=== PATIENT | female | born 1995 | race African-American/Black ===

== ENCOUNTER 2017-03-28 19:28 | Emergency (ER) | payer MEDICAID ==
[~2017-03-28] VITALS: Ht 175.3 cm; Wt 82.1 kg
[2017-03-28 19:39] VITALS: BP 125/69
[2017-03-28 20:17] LABS: Basophils # (auto) 0 uL; Basophils % (auto) 0.3 % (0.0-2.0); CONDITION Y; DEFINITIVE SEE PRINTOUT; Eosinophils # (auto) 0.1 uL; Eosinophils % (auto) 1.6 % (0.0-7.0); Hematocrit 38.1 % (36.0-46.0); Hemoglobin 12.6 g/dL (12.2-16.2); Lymphocytes # (auto) 1.5 uL; Lymphocytes % (auto) 25.1 % (10.0-50.0); Mean Corpuscular Hemoglobin 27.1 pg (28.0-32.0); Mean Corpuscular Volume 82.1 fL (80.0-100.0); Mean Platelet Volume 8.6 fL (7.4-10.4); Monocytes # (auto) 0.7 uL; Monocytes % (auto) 12.3 % (0.0-12.0); Neutrophils # (auto) 3.6 uL; Neutrophils % (auto) 60.7 % (37.0-80.0); Platelet Count (auto) 304 10^3/uL (140-450); White Blood Cell 5.9 10^3/uL (4.4-10.8)
[2017-03-28 20:24] LABS: Red Cell Distribution Width 21.3 % (11.6-16.0)
[2017-03-28 20:32] LABS: Urine Bilirubin Negative (Negative); Urine Blood Negative /uL (Negative); Urine Color Yellow (Yellow); Urine Glucose Normal (Normal); Urine Ketone Negative (Negative); Urine Nitrite Negative (Negative); Urine RBC 2 /hpf (0 - 4); Urine Squamous Epithelial Cell FEW /hpf (<5); Urine pH 7.5 (5.0-8.0)
[2017-03-28 20:34] LABS: INR 0.91 (0.9-1.15); Prothrombin Time 9.9 sec (9.37-12.3)
[2017-03-28 20:35] LABS: Albumin 3.4 g/dL (3.4-5.0); BUN/Creatinine Ratio 12.5; Bilirubin, Total 0.3 mg/dL (0.2-1.0); Calcium 9.1 mg/dL (8.5-10.1); Potassium 3.9 mmol/L (3.5-5.1); Total Protein 7.5 g/dL (6.4-8.2)
[2017-03-28 20:50] LABS: Anisocytosis Slight; Platelet Estimate Adequate
== END 2017-03-28 23:30 | disposition left against medical advice (07) ==
LOC: ER 19:31
DX: O26.852 Spotting complicating pregnancy, second trimester (principal); Z53.21 Procedure and treatment not carried out due to patient leaving prior to being seen by health care provider
CPT/HCPCS: 36415; 80053; 81001; 84702; 85025; 85610; 85730

== ENCOUNTER 2017-06-30 14:40 | Emergency (ER) | payer MEDICAID | END 2017-06-30 15:00 | disposition left against medical advice (07) | LOC: ER 14:51 | DX: O26.859 Spotting complicating pregnancy, unspecified trimester (principal); Z53.21 Procedure and treatment not carried out due to patient leaving prior to being seen by health care provider ==

== ENCOUNTER 2017-08-19 08:00 | Inpatient (IN) | payer MEDICAID ==
[~2017-08-19] VITALS: Ht 157.5 cm; Wt 84.8 kg
[2017-08-19] MEDS ORDERED: PREN-96 PO (08:47)
[2017-08-19] MEDS ORDERED: TERBUTALINE SULFATE 1 MG/ML 1ML VIAL SC ONE ×2 (08:50→08:57)
[2017-08-19] MEDS ORDERED: BETAMETHASONE ACET (6MG/ML) 5ML VIAL IM SCH (09:00)
[2017-08-19] MEDS ORDERED: MAGNESIUM SULFATE 100 ML IV ONE ×2 (09:07→09:45)
[2017-08-19] MEDS ORDERED: BETAMETHASONE ACET (6MG/ML) 5ML VIAL ONE (09:08)
[2017-08-19] MEDS ORDERED: MAGNESIUM SULFATE 40MG/ML 1,000 ML IV SCH (09:08)
[2017-08-19] MEDS ORDERED: LACTATED RINGER'S 1,000 ML IV SCH (09:08)
[2017-08-19] MEDS ORDERED: METHYLERGONOVINE MALEATE 0.2 MG/ML AMP IM PRN (09:15)
[2017-08-19] MEDS ORDERED: NALBUPHINE HCL 10 MG/1ml INJECTION IV PRN (09:15)
[2017-08-19] MEDS ORDERED: DERMOPLAST 60ML BOTTLE TOP PRN (09:15)
[2017-08-19] MEDS ORDERED: LIDOCAINE 2%HCL (LOCAL ANESTH.) INJ 20ML MDV IJ PRN (09:15)
[2017-08-19] MEDS ORDERED: CARBOPROST TROMETHAMINE 250 MCG/1ML VIAL IM PRN (09:15)
[2017-08-19] MEDS ORDERED: WITCH HAZEL-GLYCERIN PAD TOP PRN (09:15)
[2017-08-19] MEDS ORDERED: PHISODERM TOP SOLN 240ML BTL TOP PRN (09:15)
[2017-08-19] MEDS ORDERED: ceFAZolin 1GM/50ML 50 ML IV ONE (09:19)
[2017-08-19] MEDS: ceFAZolin 1GM/50ML 50 ML IV SCH ×2 (09:34→17:51)
[2017-08-19 09:43] LABS: Basophils # (auto) 0 uL; Basophils % (auto) 0.1 % (0.0-2.0); Eosinophils # (auto) 0.1 uL; Eosinophils % (auto) 1.5 % (0.0-7.0); Lymphocytes # (auto) 1.3 uL; Lymphocytes % (auto) 34.7 % (10.0-50.0); Mean Corpuscular Hemoglobin 29.8 pg (28.0-32.0); Mean Corpuscular Hgb Conc. 33.4 g/dL (32.0-36.0); Mean Corpuscular Volume 89.2 fL (80.0-100.0); Monocytes # (auto) 0.5 uL; Monocytes % (auto) 13.2 % (0.0-12.0); Neutrophils # (auto) 1.9 uL; Neutrophils % (auto) 50.5 % (37.0-80.0); Nucleated Red Blood Cells % 0.2 %; Platelet Count (auto) 213 10^3/uL (140-450); Red Blood Cells 4.38 10^6/uL (4.0-5.20); Red Cell Distribution Width 14.1 % (11.8-14.3); White Blood Cell 3.7 10^3/uL (4.4-10.8)
[2017-08-19 09:57] LABS: INR 0.92 (0.9-1.15); Partial Thromboplastin Time 30.8 sec (22.64-33.71)
[2017-08-19 09:57] LABS: Urine Bacteria NONE SEEN /hpf (None Seen); Urine Blood 1+ /uL (Negative); Urine Mucus FEW (None Seen); Urine Specific Gravity 1.021 (1.001-1.035); Urine WBC 146 /hpf (0 - 5)
[2017-08-19 10:12] LABS: Alcohol, Urine < 3.0 mg/dL (0-5); Amphetamine Screen, Urine NEGATIVE (NEGATIVE); Barbiturate Scree,Urine NEGATIVE (NEGATIVE); Benzodiazephine Screen, Urine NEGATIVE (NEGATIVE); Cannabinoid Screen, Urine NEGATIVE (NEGATIVE); Cocaine Screen, Urine NEGATIVE (NEGATIVE); Opiate Scree,Urine NEGATIVE (NEGATIVE); Phencyclidine Screen, Urine NEGATIVE (NEGATIVE)
[2017-08-19 10:16] LABS: Albumin 2.9 g/dL (3.4-5.0); BUN/Creatinine Ratio 7.6; Bilirubin, Total 0.5 mg/dL (0.2-1.0); Calcium 8.5 mg/dL (8.5-10.1); Magnesium,Therapeutic 1.9 mg/dL (4.0-7.1); Total Protein 7.2 g/dL (6.4-8.2)
[2017-08-19 10:22] LABS: Potassium 2.8 mmol/L (3.5-5.1)
[2017-08-19] MEDS ORDERED: ePHEDrine SULFATE 50 MG/ML AMP IV ONE (11:15)
[2017-08-19] MEDS ORDERED: fentaNYL W ROPIVACAINE 150 ML EPI SCH (11:15)
[2017-08-19] MEDS ORDERED: LACT. RINGERS/OXYTOCIN 20UNITS 1,000 ML IV SCH (11:18)
[2017-08-19] MEDS: POTASSIUM CHLORIDE 40 MEQ in D5W/LACTATED RINGERS 1,000 ML IV SCH ×2 (12:30→14:30)
[2017-08-19] MEDS ORDERED: POTASSIUM CHL 20 Meq TABLET PO ONE (12:30)
[2017-08-19] MEDS ORDERED: DOCUSATE CALCIUM 240 MG CAP PO ONE (12:45)
[2017-08-19 16:30] VITALS: BP 98/72
[2017-08-19 19:00] VITALS: BP 101/54
[2017-08-19 23:00] VITALS: BP 117/57
[2017-08-20] MEDS: ceFAZolin 1GM/50ML 50 ML IV SCH ×3 (01:50→17:59)
[2017-08-20 03:45] VITALS: BP 109/66
[2017-08-20] MEDS: IBUPROFEN 600 MG TAB PO PRN ×3 (03:45→19:30)
[2017-08-20 07:52] VITALS: BP 110/70
[2017-08-20] MEDS ORDERED: DOCUSATE CALCIUM 240 MG CAP PO SCH (10:00)
[2017-08-20] MEDS ORDERED: TETANUS-DIPTH-ACEL PERTUSSIS 0.5ML SYRG IM ONE (10:45)
[2017-08-20 12:00] VITALS: BP 101/64
[2017-08-20 16:00] VITALS: BP 108/73
[2017-08-20 19:00] VITALS: BP 103/68
[2017-08-20] MEDS: THROAT LOZENGES(CEPASTAT) MT PRN (21:11)
[2017-08-20 23:30] VITALS: BP 106/69
[2017-08-21] MEDS: guaiFENesin-DM 100/10mg/5ml SYR PO PRN ×2 (00:06→08:33)
[2017-08-21 03:10] LABS: RPR Non Reactive (Non Reactive)
[2017-08-21] MEDS: THROAT LOZENGES(CEPASTAT) MT PRN (03:48)
[2017-08-21 04:00] VITALS: BP 104/56
[2017-08-21 07:12] VITALS: BP 116/80
[2017-08-21 11:45] VITALS: BP 117/80
[2017-08-21 12:30] VITALS: BP 117/73
== END 2017-08-21 12:10 | disposition home or self-care (01) | DRG 560 ==
LOC: LDRP 08:00 → OBSVTOIN 08:15 → LDRP 10:24
PROVIDERS: ADMIT Specialist; ATTEND Specialist
PROC: 10E0XZZ Delivery of Products of Conception, External Approach (ICD-10-PCS; principal; 2017-08-19)
PROC: 3E0R3BZ Introduction of Anesthetic Agent into Spinal Canal, Percutaneous Approach (ICD-10-PCS; 2017-08-19)
PROC: 00HU33Z Insertion of Infusion Device into Spinal Canal, Percutaneous Approach (ICD-10-PCS; 2017-08-19)
DX: O60.14X0 Preterm labor third trimester with preterm delivery third trimester, not applicable or unspecified (principal); Z37.0 Single live birth; Z3A.35 35 weeks gestation of pregnancy
CPT/HCPCS: 36415; 59025; 59409; 62282; 76805; 80053; 80307; 81001; 81002; 83735; 84132; 85025; 85610; 85730; 86592; 86850; 86900; 86901; 90715; 94762; 96361; 96365; 96366; 96372; G0378; J0690; J2590; J3010

== ENCOUNTER 2018-06-03 10:50 | Emergency (ER) | payer MEDICAID ==
[~2018-06-03] VITALS: Ht 157.5 cm; Wt 81.6 kg
[~2018-06-03 10:50] MED LIST: PREN-96 PO
[2018-06-03 10:56] VITALS: BP 147/99
== END 2018-06-03 13:21 | disposition home or self-care (01) ==
LOC: ER 10:50
DX: J03.90 Acute tonsillitis, unspecified (principal); J45.909 Unspecified asthma, uncomplicated

== ENCOUNTER 2022-05-11 23:12 | Emergency (ER) | payer MEDICAID ==
[~2022-05-11] VITALS: Ht 157.5 cm; Wt 101.8 kg
[2022-05-12 02:37] VITALS: BP 140/93
[2022-05-12] MEDS ORDERED: KETOROLAC TROMETH 60MG/2ML VIAL IM ONE (03:15)
== END 2022-05-12 04:03 | disposition home or self-care (01) ==
LOC: ER 23:12
DX: G43.909 Migraine, unspecified, not intractable, without status migrainosus (principal); J45.909 Unspecified asthma, uncomplicated; F17.210 Nicotine dependence, cigarettes, uncomplicated
CPT/HCPCS: 96372; 99283; J1885